=== PATIENT | female | born 2000 | race American Indian/Alaskan Native ===

== ENCOUNTER 2019-04-06 10:21 | Outpatient (CLI) | payer MEDICAID, OTHER ==
[2019-04-06 10:57] VITALS: BP 112/71
[2019-04-06] MEDS ORDERED: LACTATED RINGERS 500 ML IV ONE (11:45)
[2019-04-06 13:02] LABS: Bilirubin,Urine NEG (Negative); Blood,Urine NEG (Negative); Color,Urine Yellow (Yellow); Mucus,Urine FEW /HPF; Protein,Urine <15 mg/dL mg/dL (Negative); RBC,Urine < 1.0 /HPF (0.0-6.0); Urobilinogen,Urine < 2.0 mg/dL (<2.0)
[2019-04-06] MEDS ORDERED: BRETHINE SUB-Q ONE (15:46)
== END 2019-04-06 15:30 | disposition home or self-care (01) ==
LOC: TRG 10:21
PROVIDERS: ATTEND Obstetrics & Gynecology
DX: O26.893 Other specified pregnancy related conditions, third trimester (principal); R10.2 Pelvic and perineal pain; M54.5 Low back pain; R10.9 Unspecified abdominal pain; Z3A.33 33 weeks gestation of pregnancy
CPT/HCPCS: 59025; 81001; 96360; 96372; J3105; J7120

== ENCOUNTER 2019-05-02 01:31 | Outpatient (CLI) | payer MEDICAID ==
[2019-05-02] MEDS ORDERED: LACTATED RINGERS 500 ML IV ONE (01:46)
[2019-05-02 01:52] VITALS: BP 132/60
[2019-05-02] MEDS ORDERED: LACTATED RINGERS 1,000 ML ONE (02:12)
[2019-05-02 02:41] LABS: Bilirubin,Urine NEG (Negative); Blood,Urine NEG (Negative); Color,Urine Straw (Yellow); Protein,Urine <15 mg/dL mg/dL (Negative); Urobilinogen,Urine < 2.0 mg/dL (<2.0)
[2019-05-02] MEDS ORDERED: BRETHINE ONE (03:57)
[2019-05-02] MEDS ORDERED: BRETHINE SUB-Q SCH (04:00)
== END 2019-05-02 04:40 | disposition home or self-care (01) ==
LOC: TRG 01:31
PROVIDERS: ATTEND Obstetrics & Gynecology
DX: O60.03 Preterm labor without delivery, third trimester (principal); Z3A.36 36 weeks gestation of pregnancy
CPT/HCPCS: 81001; 96374; J3105; J7120

== ENCOUNTER 2019-05-08 01:37 | Inpatient (IN) | payer MEDICAID ==
[2019-05-08] MEDS ORDERED: XYLOCAINE 2% INFILTRATI ONE (02:40)
[2019-05-08] MEDS ORDERED: SUBLIMAZE IV PRN (02:40)
[2019-05-08] MEDS ORDERED: BRETHINE SUB-Q PRN (02:40)
[2019-05-08] MEDS ORDERED: AMPICILLIN/NS 2 GM/100 ML 2 GM/100 ML BAG IV ONE (02:40)
[2019-05-08] MEDS ORDERED: LACTATED RINGERS 1,000 ML IV SCH (03:00)
[2019-05-08] MEDS ORDERED: PITOCin/NS 30 UNIT/500ML 30 UNITS/500 ML BAG IV SCH (03:00)
[2019-05-08] MEDS ORDERED: PITOCin/NS 20 UNIT/1000ML DRIP 20 UNITS/1,000 ML BAG IV SCH (03:00)
--- NOTE | 2019-05-08 03:06 | History and Physical Report ---
History of Present Illness Date of examination: 05/08/19 Date of admission: 05/08/19 02:00 Chief complaint: Leaking of water from vagina. History of present illness: 18 year old presents to L&D with complaint of leaking of water from vagina since 01:00 this morning. Patient denies vaginal bleeding. Patient reports irregular contractions. Patient reports active movement. Patient states she received limited care; first made one visit to [facility], then transferred to [facility] at 36 weeks gestation (made 2 visits at [facility]). Limited records are available. LMP 08/25/18. EDC 05/25/19. significant for the following: Late and limited care, transfer of care to [facility] (at 36 weeks gestation), drug screen positive for THC, increased carrier risk for SMA, silent carrier for alpha thalassemia. labs are as follows: O positive, rubella immune, hepatitis B surface antigen negative, RPR nonreactive, HIV negative, varicella immune, UDS positive for THC, chlamydia negative, gonorrhea negative, trichomonas negative, AFP negative, panorama low risk female, hemoglobin electrophoresis negative, silent carrier for alpha-thalassemia, increased carrier risk for SMA, patient did not take glucose test, no GBS test result on chart. Past History Past Medical History: no pertinent history Past Surgical History: no surgical history SURFACE MINER History: denies: abnormal PAP smear, chlamydia, gonorrhea, hepatitis B, hepatitis C, herpes, HIV, syphilis, trichomonas Family/Genetic History: cancer Social history: single, lives with family, full code. denies: smoking, alcohol abuse, prescription drug abuse, IV drug use - Obstetrical History Expected Date of Delivery: 05/25/19 Actual Gestation: 37 Week(s) 4 Day(s) : 1 Para: 0 Hx # Term Pregnancies: 0 Number of Pregnancies: 0 Spontaneous Abortions: 0 Induced : 0 Number of Living Children: 0 Medications and Allergies Allergies Allergy/AdvReac Type Severity Reaction Status Date / Time No Known Allergies Allergy Verified 01/05/16 22:33 Home Medications Medication Instructions Recorded Confirmed Last Taken Type Ortho Tri-Cyclen Lo Tablet 1 tab PO DAILY 01/09/16 01/09/16 01/09/16 History Ketorolac [Toradol] 10 mg PO Q6H PRN #20 tablet 01/10/16 Unknown Rx Nitrofurantoin [place]/M-Cryst 100 mg PO Q12HR #13 capsule 01/10/16 Unknown Rx [Macrobid CAP] Ondansetron [Zofran Odt] 4 mg PO QID PRN #20 tab.rapdis 01/10/16 Unknown Rx Active Meds: Active Medications Ephedrine Sulfate (Ephedrine Sulfate) 10 mg IV Q2M PRN PRN Reason: Hypotension Fentanyl (Sublimaze) 100 mcg IV Q2H PRN PRN Reason: Labor Pain Oxytocin/Sodium Chloride (Pitocin/Ns 20 Unit/1000ml Drip) 20 units in 1,000 mls @ 125 mls/hr IV DIRECT AME Oxytocin/Sodium Chloride (Pitocin/Ns 30 Unit/500ml) 30 units in 500 mls @ 0 mls/hr IV TITR AME; Protocol Lactated Ringer's (Lactated Ringers) 1,000 mls @ 125 mls/hr IV DIRECT AME Ampicillin Sodium (Ampicillin/Ns 2 Gm/100 Ml) 2 gm in 100 mls @ 100 mls/hr IV ONCE ONE; Protocol Stop: 05/08/19 03:39 Ampicillin Sodium (Ampicillin/Ns 1 Gm/50 Ml) 1 gm in 50 mls @ 100 mls/hr IV Q4HR AME; Protocol Lidocaine (Xylocaine 2%) 20 ml INFILTRATI ONCE ONE Stop: 05/08/19 02:41 Terbutaline Sulfate (Brethine) 0.25 mg SUB-Q ONCE PRN PRN Reason: Hyperstimulation/Hypertonicity Review of Systems All systems: negative (leaking of fluid from vagina since 01:00 today) - Physical Exam Abdomen: Positive: normal appearance, soft. Negative: distention, tenderness, guarding, rigidity Genitourinary (Female): Positive: normal external genitalia, normal perenium. Negative: perineal/vulvar lesions Vagina: Positive: other (clear fluid seen leaking from introitus) Uterus: Positive: enlarged. Negative: tender Anus/Rectum: Positive: normal perianal skin - Obstetrical FHR: category 1 Uterine Contraction Monitor Mode: External Cervical Dilatation: 3.5 Cervical Effacement Percentage: 90 station: -1 Uterine Contraction Pattern: Irregular Uterine Contraction Intensity: Mild Results All other labs normal. Assessment and Plan A: at 37 weeks, 4 days gestation. Spontaneous rupture of membranes. GBS unknown. Limited care. History of THC use during . P: Admit. GBS prophylaxis. Epidural if desired. EFM. Anticipate vaginal .
[2019-05-08 03:45] LABS: Hematocrit 31.3 % (30.3-42.9); Mean Corpuscular HGB Conc 32 % (30-34); Platelet Count 195 K/mm3 (140-440); Red Blood Count 4.66 M/mm3 (3.65-5.03); Red Cell Distribution Width 18.5 % (13.2-15.2)
[2019-05-08 03:46] LABS: Mean Corpuscular Volume 67 fl (79-97)
--- NOTE | 2019-05-08 05:10 | Event Note ---
Date: 05/08/19 SVE 5.5/100/0. Patient requests epidural. RN notified pt. requests epidural.
--- NOTE | 2019-05-08 05:42 | Event Note ---
Date: 05/08/19 Amnioinfusion ordered for variable FHR decelerations. Moderate FHR variability. Oxygen per face mask at 10 LPM.
[2019-05-08] MEDS ORDERED: NARCAN 2 MG/2 ML IV PRN (05:55)
--- NOTE | 2019-05-08 05:55 | Anesthesia Consultation ---
Anesthesia Consult and Med Hx Date of service: 05/08/19 - Airway Anesthetic Teeth Evaluation: Good ROM Head & Neck: Adequate Mental/Hyoid Distance: Adequate Mallampati Class: Class II Intubation Access Assessment: Probably Good - Pulmonary Exam CTA: Yes - Cardiac Exam Cardiac Exam: RRR - Pre-Operative Health Status ASA Pre-Surgery Classification: ASA2 Proposed Anesthetic Plan: Epidural - Pulmonary Hx Asthma: No COPD: No Hx Pneumonia: No - Cardiovascular System Hx Hypertension: No - Central Nervous System Hx Seizures: No Hx Psychiatric Problems: No - Endocrine Hx Renal Disease: No Hx End Stage Renal Disease: No Hx Hypothyroidism: No Hx Hyperthyroidism: No - Hematic Hx Anemia: No Hx Sickle Cell Disease: No - Other Systems Hx Alcohol Use: No
[2019-05-08] MEDS ORDERED: fentaNYL-BUPIV 2 MCG/ML-0.125% 200 MCG/100 ML BAG EPIDURAL SCH (06:00)
[2019-05-08] MEDS ORDERED: NACL 0.9% 1000 ML 1,000 ML VG SCH (06:00)
[2019-05-08] MEDS ORDERED: AMPICILLIN/NS 1 GM/50 ML 1 GM/50 ML BAG IV SCH (06:46)
[2019-05-08] MEDS ORDERED: CYTOTEC ONE (06:57)
[2019-05-08] MEDS ORDERED: NORCO 5/325 PO PRN (07:37)
[2019-05-08] MEDS ORDERED: LANSINOH TP PRN (07:37)
--- NOTE | 2019-05-08 07:44 | Procedure Note ---
OB Delivery Note - Delivery Date of Delivery: 05/08/19 Surgeon: CONCHIS FELDMAN Estimated blood loss: 300cc - Vaginal Delivery presentation: vertex Delivery position: OA Delivery induction: none Delivery monitor: external FHT, external uterine, internal FHT Route of delivery: Delivery placenta: spontaneous Delivery cord: 3 umbilical vessels Episiotomy: midline Delivery laceration: 2nd degree Delivery repair: vicryl Anesthesia: epidural Delivery comments: Spontaneous vaginal delivery at 06:45 of liveborn female weighing 6 lb. 6 oz. over 2nd degree midline episiotomy with apgars of 8/9. Epidural anesthesia. Nuchal cord times 1, manually reduced. Baby placed immediately skin to skin with mom after and dried and bulb suctioned. Spontaneous cry and respirations. 3 vessel cord double clamped and cut. Spontaneous delivery of intact placenta and membranes by khalil mechanism. Pitocin to IV fluids after delivery of placenta. Fundus firm and midline. EBL 300 cc. 2nd degree midline episiotomy repaired with 2-0 and 3-0 vicryl in usual sterile fashion. No other lacerations noted. Vaginal sweep negative. Sponge count correct. Mother and baby stable in birthing room.
[2019-05-08] MEDS ORDERED: SODIUM CHLORIDE FLUSH SYRINGE 10 ML IV NR (08:00)
[2019-05-08 08:05] LABS: Alanine Aminotransferase 9 units/L (7-56); Albumin 3.4 g/dL (3.9-5); BUN/Creatinine Ratio 17; Blood Urea Nitrogen 12 mg/dL (7-17); Calcium 8.8 mg/dL (8.4-10.2); Hemolysis Index 11
[2019-05-08] MEDS: CLEOCIN 900 MG/50 mL 900 MG/50 ML BAG IV SCH ×2 (09:30→17:00)
[2019-05-08] MEDS: IBUPROFEN PO SCH ×2 (12:19→21:12)
[2019-05-08] MEDS: COLACE PO SCH ×2 (12:20→21:46)
[2019-05-08] MEDS: TUCKS PAD TP PRN (18:44)
[2019-05-08 20:23] LABS: Hematocrit 27.5 % (30.3-42.9); Hemoglobin 8.5 gm/dl (10.1-14.3)
[2019-05-08] MEDS ORDERED: MILK OF MAGNESIA PO PRN (22:00)
[2019-05-09] MEDS ORDERED: LACTATED RINGERS 1,000 ML IV SCH (00:38)
[2019-05-09] MEDS: CLEOCIN 900 MG/50 mL 900 MG/50 ML BAG IV SCH (00:43)
[2019-05-09] MEDS: IBUPROFEN PO SCH ×4 (04:13→19:52)
[2019-05-09] MEDS ORDERED: BOOSTRIX IM ONE (06:15)
--- NOTE | 2019-05-09 09:48 | Progress Note ---
Assessment and Plan A: PPD#1 s/p Bottlefeeding Asymptomatic Anemia Stable P: Routine PP care Discharge home today Increase iron rich foods Ferrous sulfate BID Subjective - Subjective Date of service: 05/09/19 Principal diagnosis: PPD#1 s/p Interval history: See H&P and delivery note Patient reports: appetite normal, voiding normally, pain well controlled, flatus, ambulating normally, no bowel movement [place]: doing well, bottle feeding Objective - Vital Signs Latest vital signs: Vital Signs Temp Pulse Resp BP BP Pulse Ox 05/09/19 07:39 97.9 F 70 16 115/66 97 05/09/19 01:29 98.2 F 78 18 118/61 05/08/19 16:36 97.6 F 88 18 111/50 05/08/19 12:04 97.6 F 80 18 110/74 Intake and Output 05/08/19 05/09/19 05/09/19 23:59 07:59 15:59 Intake Total 530 360 Output Total 1700 Balance -1170 360 Intake: IV 50 CLEOCIN 900 MG/50 mL 900 50 mg In 50 ml @ 100 mls/hr IV Q8H [facility] Rx#:[id number] Oral 480 Intake, Free Water 360 Output: Urine 1700 Void 1700 Other: Total, Intake Amount 480 Total, Output Amount 600 # Voids Void 1 2 - Exam Breasts: Present: normal Cardiovascular: Present: Regular rate, Normal S1, Normal S2, No murmurs Lungs: Present: Clear to auscultation, Normal air movement Abdomen: Present: normal appearance, soft, normal bowel sounds. Absent: tenderness Vulva: both: normal, laceration/episiotomy (Episiotomy well approximated) Uterus: Present: firm, fundal height below umbilicus (-1) Extremities: Present: normal Deep Tendon Reflex Grade: Normal +2 - Labs Labs: Abnormal lab results 05/08/19 Range/Units 19:57 Hgb 8.5 L (10.1-14.3) gm/dl Hct 27.5 L (30.3-42.9) %
--- NOTE | 2019-05-09 09:50 | Discharge Summary ---
Providers - Providers Date of Admission: 05/08/19 02:00 Date of discharge: 05/09/19 Attending physician: FLORY DENNY MD 05/09/19 07:26 Consult to Case Management [CONS] Routine Services Needed at Discharge: Quality Assurance Intern Notified:: No Primary care physician: FLORY DENNY MD Hospitalization Reason for admission: IUP at term Delivery: Procedure details: See delivery note Episiotomy: midline (well approximated) Laceration: 2nd degree Other procedures: none complications: none Discharge diagnosis: IUP at term delivered baby: female Condition at discharge: Good Disposition: DC-01 TO HOME OR SELFCARE Plan - Provider Discharge Summary Activity: routine, no sex for 6 weeks, no heavy lifting 4 weeks, no strenuous exercise Diet: routine Instructions: routine Additional instructions: [] Smoking cessation referral if applicable(refer to patient education folder for contact #) [] Refer to [facility]'s [facility] Booklet Call your doctor immediately for: * Fever > 100.5 * Heavy vaginal bleeding ( >1 pad per hour) * Severe persistent headache * Shortness of breath * Reddened, hot, painful area to leg or breast * Drainage or odor from incision. * Keep incision clean and dry at all times and follow doctor's instructions regarding bathing/showering Ferrous sulfate BID - Follow up plan Follow up: FLORY DENNY MD [Primary Care Provider] - 6 Weeks
[2019-05-09] MEDS: COLACE PO SCH ×2 (10:03→22:13)
--- NOTE | 2019-05-09 10:58 | Post Anesthesia Evaluation ---
- Post Anesthesia Evaluation Patient Participated: Yes Airway Patent: Yes Stable Respiratory Function: Yes Nausea/Vomiting: No Temp > 96.8F: Yes Pain Manageable: Yes Adequeate Hydration: Yes Anesthesia Complications: No Block Receding Appropriately: Yes Patient on Ventilator: No
[2019-05-10] MEDS: IBUPROFEN PO SCH ×2 (04:43→09:56)
[2019-05-10] MEDS: TUCKS PAD TP PRN (04:50)
[2019-05-10] MEDS: COLACE PO SCH (09:54)
[2019-05-10 14:40] VITALS: BP 119/74
== END 2019-05-10 13:30 | disposition home or self-care (01) | DRG 775 ==
LOC: TRG 01:37 → LD 02:00 → OB 09:29
PROVIDERS: ADMIT Obstetrics & Gynecology; ATTEND Obstetrics & Gynecology
PROC: 10E0XZZ Delivery of Products of Conception, External Approach (ICD-10-PCS; principal; 2019-05-08)
PROC: 0KQM0ZZ Repair Perineum Muscle, Open Approach (ICD-10-PCS; 2019-05-08)
PROC: 0W8NXZZ Division of Female Perineum, External Approach (ICD-10-PCS; 2019-05-08)
PROC: 3E0R3BZ Introduction of Anesthetic Agent into Spinal Canal, Percutaneous Approach (ICD-10-PCS; 2019-05-08)
PROC: 00HU33Z Insertion of Infusion Device into Spinal Canal, Percutaneous Approach (ICD-10-PCS; 2019-05-08)
DX: O76 Abnormality in fetal heart rate and rhythm complicating labor and delivery (principal); O99.02 Anemia complicating childbirth; D64.9 Anemia, unspecified; O69.1XX0 Labor and delivery complicated by cord around neck, with compression, not applicable or unspecified; O70.1 Second degree perineal laceration during delivery; Z3A.37 37 weeks gestation of pregnancy; Z37.0 Single live birth; Z80.9 Family history of malignant neoplasm, unspecified; Z79.899 Other long term (current) drug therapy
CPT/HCPCS: 36415; 80053; 83036; 85014; 85018; 85027; 86592; 86850; 86900; 86901; 90471; 90715; G0378; J2590; J3010; J7120